=== PATIENT | male | born 1970 | race Caucasian/White ===

== ENCOUNTER 2025-05-12 06:00 | Emergency (ER) | payer OTHER ==
[2025-05-12 06:40] LABS: ALT (SGPT) 35 U/L (Less than 45); AST (SGOT) 37 U/L (11-34); Albumin 2.8 g/dL (3.1-4.5); Alkaline Phosphatase 103 U/L (40-110); Anion Gap 17 mmol/L (10-20); BUN (Urea Nitrogen) 9 mg/dL (8.4-25.7); Bilirubin, Total 0.8 mg/dL (0.3-1.2); Calc. Creatinine Clearance 0 mL/min (70-130); Calcium 8.4 mg/dL (7.8-10.44); Carbon Dioxide 24 mmol/L (22-29); Chloride 100 mmol/L (98-107); Globulin 4.6 g/dL (2.4-3.5); Glucose 90 mg/dL (70-105); Potassium 4.3 mmol/L (3.5-5.1); Sodium 137 mmol/L (136-145)
[2025-05-12 06:45] LABS: #Basophils 0.05 10x3/uL (0.0-0.2); #Eosinophils 0.24 10x3/uL (0.0-0.5); #Monocytes 1.44 10x3/uL (0.0-1.1); #Neutrophils 11.69 10x3/uL (1.5-8.4); %Basophils 0.3 % (0.0-2.0); %Eosinophils 1.6 % (0.0-6.0); %Lymphocytes 11.7 % (18.0-47.0); %Monocytes 9.4 % (0.0-10.0); %Neutrophils 76.2 % (40.0-75.0); Hematocrit 38.6 % (38.8-50.0); Hemoglobin 12.5 g/dL (13.5-17.5); Mean Corpuscular Hemoglobin 30.3 pg (27.0-33.0); Mean Corpuscular Volume 93.5 fL (81.2-95.1); Platelet Count 312 10x3/uL (150-450); Red Blood Cell (RBC) Count 4.13 10x6/uL (4.32-5.72); White Blood Cell (WBC) Count 15.34 10x3/uL (3.5-10.5)
[2025-05-12 06:46] LABS: Troponin I Less than 0.010 ng/mL (< 0.028)
[2025-05-12 07:19] LABS: Glucose, Urine (Dipstick) Normal (Negative); Leukocyte Negative (Negative); Protein, Urine (Dipstick) Negative (Neg-Trace); Specific Gravity, Urine 1.010 (1.005-1.030)
[2025-05-12 07:46] LABS: Bacteria/HPF None Seen HPF (None Seen); CAUTI Indications for Culture Dysuria,urgency,freq; RBC/HPF None Seen HPF (0-3); WBC/HPF None Seen HPF (0-3)
[2025-05-12 07:48] LABS: Urine Culture Reflex No No
[2025-05-12] MEDS ORDERED: Azithromycin 250 MG TAB ONE (08:03)
[2025-05-12] MEDS ORDERED: cefTRIAXone (ROCEPHIN) 1 GM VIAL ONE (08:04)
[2025-05-12] MEDS ORDERED: Iopamidol 300 61% 100 ML VIAL FS ONE (10:28)
== END 2025-05-12 12:10 | disposition short-term general hospital (02) ==
LOC: EEVIPCON 06:00 → CSHERS 06:00
DX: J18.9 Pneumonia, unspecified organism (principal); R04.2 Hemoptysis; R91.8 Other nonspecific abnormal finding of lung field; I10 Essential (primary) hypertension; K21.9 Gastro-esophageal reflux disease without esophagitis; E11.9 Type 2 diabetes mellitus without complications; Z79.899 Other long term (current) drug therapy
CPT/HCPCS: 36415; 71045; 71260; 80053; 81001; 83605; 83880; 84484; 85025; 87040; 93005; 94760; 96374; J0696; Q9967

== ENCOUNTER 2025-07-01 16:03 | Inpatient (IN) | payer OTHER ==
[2025-07-01 16:51] LABS: Glucose, Urine (Dipstick) Normal (Negative); Leukocyte Negative (Negative); Protein, Urine (Dipstick) Negative (Neg-Trace); Specific Gravity, Urine 1.010 (1.005-1.030)
[2025-07-01 17:09] LABS: ALT (SGPT) 17 U/L (Less than 45); AST (SGOT) 29 U/L (11-34); Albumin 4.0 g/dL (3.1-4.5); Alkaline Phosphatase 98 U/L (40-110); Anion Gap 12 mmol/L (10-20); BUN (Urea Nitrogen) 16 mg/dL (8.4-25.7); Bilirubin, Total 0.5 mg/dL (0.3-1.2); Calc. Creatinine Clearance 0 mL/min (70-130); Calcium 9.4 mg/dL (7.8-10.44); Carbon Dioxide 26 mmol/L (22-29); Chloride 105 mmol/L (98-107); Globulin 3.6 g/dL (2.4-3.5); Glucose 82 mg/dL (70-105); Potassium 5.3 mmol/L (3.5-5.1); Sodium 138 mmol/L (136-145)
[2025-07-01 17:15] LABS: Troponin I Less than 0.010 ng/mL (< 0.028)
[2025-07-01 17:29] LABS: Bacteria/HPF None Seen HPF (None Seen); CAUTI Indications for Culture Spinal Cord Injury; RBC/HPF None Seen HPF (0-3); Urine Culture Reflex No No; WBC/HPF None Seen HPF (0-3)
[2025-07-01 18:05] LABS: #Basophils 0.05 10x3/uL (0.0-0.2); #Eosinophils 0.41 10x3/uL (0.0-0.5); #Monocytes 0.74 10x3/uL (0.0-1.1); #Neutrophils 4.80 10x3/uL (1.5-8.4); %Basophils 0.6 % (0.0-2.0); %Eosinophils 4.8 % (0.0-6.0); %Lymphocytes 30.0 % (18.0-47.0); %Monocytes 8.6 % (0.0-10.0); %Neutrophils 55.8 % (40.0-75.0); Hematocrit 42.4 % (38.8-50.0); Hemoglobin 13.8 g/dL (13.5-17.5); Mean Corpuscular Hemoglobin 30.4 pg (27.0-33.0); Mean Corpuscular Volume 93.4 fL (81.2-95.1); Platelet Count 181 10x3/uL (150-450); Red Blood Cell (RBC) Count 4.54 10x6/uL (4.32-5.72); White Blood Cell (WBC) Count 8.60 10x3/uL (3.5-10.5)
[2025-07-01] MEDS ORDERED: Acetaminophen 325 MG TAB PO PRN (19:49)
[2025-07-01] MEDS ORDERED: Ondansetron PF 4 MG/2 ML Vial IVP PRN (19:49)
[2025-07-01 21:55] VITALS: BMI 25.1
[2025-07-01] MEDS: Furosemide 20 MG TAB PO SCH (22:42)
[2025-07-02 04:45] LABS: #Basophils 0.06 10x3/uL (0.0-0.2); #Eosinophils 0.34 10x3/uL (0.0-0.5); #Monocytes 0.68 10x3/uL (0.0-1.1); #Neutrophils 3.39 10x3/uL (1.5-8.4); %Basophils 0.9 % (0.0-2.0); %Eosinophils 4.8 % (0.0-6.0); %Lymphocytes 36.3 % (18.0-47.0); %Monocytes 9.7 % (0.0-10.0); %Neutrophils 48.2 % (40.0-75.0); Hematocrit 39.1 % (38.8-50.0); Hemoglobin 12.7 g/dL (13.5-17.5); Mean Corpuscular Hemoglobin 30.2 pg (27.0-33.0); Mean Corpuscular Volume 92.9 fL (81.2-95.1); Platelet Count 179 10x3/uL (150-450); Red Blood Cell (RBC) Count 4.21 10x6/uL (4.32-5.72); White Blood Cell (WBC) Count 7.03 10x3/uL (3.5-10.5)
[2025-07-02 05:09] LABS: Anion Gap 12 mmol/L (10-20); BUN (Urea Nitrogen) 14 mg/dL (8.4-25.7); Calc. Creatinine Clearance 157 mL/min (70-130); Calcium 8.4 mg/dL (7.8-10.44); Carbon Dioxide 26 mmol/L (22-29); Chloride 107 mmol/L (98-107); Glucose 109 mg/dL (70-105); Potassium 4.1 mmol/L (3.5-5.1); Sodium 141 mmol/L (136-145)
[2025-07-02] MEDS: Furosemide 20 MG TAB PO SCH (09:35)
[2025-07-02] MEDS: Metoprolol Succinate XL 50 MG ER.TAB PO SCH (09:35)
[2025-07-02] MEDS: Magnesium Oxide 400 MG TAB PO SCH (20:33)
[2025-07-04 19:06] VITALS: BP 121/68; TEMP 97.8
== END 2025-07-04 20:40 | DRG 312 ==
LOC: CSHERS 16:03 → EEVIPCON 16:03 → CSHTELE 19:49 → OBSVTOIN 07-02 17:03
PROVIDERS: ADMIT Internal Medicine; ATTEND Family Medicine
DX: R55 Syncope and collapse (principal); E78.5 Hyperlipidemia, unspecified; E87.5 Hyperkalemia; E11.9 Type 2 diabetes mellitus without complications; Z88.8 Allergy status to other drugs, medicaments and biological substances; K21.9 Gastro-esophageal reflux disease without esophagitis; M19.90 Unspecified osteoarthritis, unspecified site; Z98.890 Other specified postprocedural states; Z96.651 Presence of right artificial knee joint; Z79.899 Other long term (current) drug therapy
CPT/HCPCS: 36415; 70450; 71045; 72125; 80048; 80053; 81001; 84484; 85025; 93005; 93306; 94760; G0378